=== PATIENT | female | born 2000 | race Caucasian/White ===

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

== ENCOUNTER 2019-10-14 18:37 | Emergency (ER) | payer OTHER ==
[~2019-10-14] VITALS: Ht 167.6 cm; Wt 104.3 kg
[~2019-10-14 18:37] MED LIST changes: +Flonase 0.05% N16 GM; +ORTHO TRI-CYCL1 EACH PO; +Sudogest60 MG PO
[2019-10-14 19:08] LABS: BASOPHILS ABSOLUTE AUTO 0.03 K/mm3 (0.00-0.23); BASOPHILS PERCENT AUTO 0 % (0-2); EOSINOPHILS ABSOLUTE AUTO 0.04 K/mm3 (0.00-0.68); EOSINOPHILS PERCENT AUTO 0 % (0-6); Hematocrit 47.1 % (33.0-51.0); IMMATURE GRAN ABSOLUTE AUTO 0.03 K/mm3 (0.00-0.10); IMMATURE GRAN PERCENT AUTO 0 % (0-1); LYMPHOCYTES ABSOLUTE AUTO 2.86 K/mm3 (0.84-5.20); LYMPHOCYTES PERCENT AUTO 24 % (21-46); MONOCYTES ABSOLUTE AUTO 1.07 K/mm3 (0.16-1.47); MONOCYTES PERCENT AUTO 9 % (4-13); Mean Corpuscular HGB 28.1 pg (26.0-34.0); Mean Corpuscular Volume 83 fL (80-100); Mean Platelet Volume 10.3 fL (9.1-12.4); NEUTROPHILS ABSOLUTE AUTO 7.97 K/mm3 (1.96-9.15); NEUTROPHILS PERCENT AUTO 66 % (41-73); Platelet Count 253 K/mm3 (150-400); RDW Coefficient Variation 11.6 % (11.7-14.2); RDW Standard Deviation 35.3 fL (35.1-46.3)
[2019-10-14 19:27] LABS: Alanine Aminotransfer (ALT/SGP 23 U/L (12-78); Albumin, Blood 3.4 g/dL (3.4-5.0); Albumin/Globulin Ratio 0.7 (0.8-1.8); Alk Phos 54 U/L (50-136); Anion Gap 7 mmol/L (6-16); Aspartate Aminotrans (AST/SGOT 12 U/L (12-37); Bilirubin, Total 0.8 mg/dL (0.1-1.0); Blood Urea Nitrogen 7 mg/dL (8-24); Bun/Creatinine Ratio 15.2 (12.0-20.0); CO2, Blood 25 mmol/L (21-32); Calcium, Blood 9.3 mg/dL (8.5-10.1); Chloride, Blood 101 mmol/L (98-108); Creatinine, Blood 0.46 mg/dL (0.40-1.00); Globulin, Blood 4.8 g/dL (2.2-4.0); Glomerular Filtration Rate >60 (60-); Glucose, Blood 236 mg/dL (70-99); Potassium, Blood 3.9 mmol/L (3.5-5.5); Sodium, Blood 133 mmol/L (136-145); Total Protein, Blood 8.2 g/dL (6.4-8.2)
[2019-10-14] MEDS ORDERED: HYDROCODONE-AC1 EAC8 PO (21:03)
[2019-10-14] MEDS ORDERED: ACET325 PO (21:03)
[2019-10-15] MEDS ORDERED: PSEUDOEPHEDRINE30 MG PO (00:12)
[2019-10-15] MEDS ORDERED: CEFD300 PO (00:12)
== END 2019-10-15 00:32 | disposition home or self-care (01) ==
LOC: ER 18:37
PROVIDERS: Physician Assistant
DX: J01.00 Acute maxillary sinusitis, unspecified (principal); J01.20 Acute ethmoidal sinusitis, unspecified; B96.89 Other specified bacterial agents as the cause of diseases classified elsewhere; Z88.2 Allergy status to sulfonamides; Z88.0 Allergy status to penicillin; Z98.890 Other specified postprocedural states
CPT/HCPCS: 36415; 70487; 80053; 85025; J0696; J2405; J7030; Q9967

== ENCOUNTER 2020-01-16 03:27 | Emergency (ER) | payer OTHER ==
[~2020-01-16] VITALS: Ht 167.6 cm; Wt 103.0 kg
[~2020-01-16 03:27] MED LIST changes: +ACET325 PO; +CEFD300 PO; +HYDROCODONE-AC1 EAC8 PO; +PSEUDOEPHEDRINE30 MG PO
[2020-01-16] MEDS ORDERED: [UNRECOGNIZED DRUG - OTHER] (04:27)
[2020-01-16] MEDS ORDERED: ACYC400 PO (04:31)
[2020-01-16 05:14] LABS: Source, Urine Clean Catch
[2020-01-16 05:21] LABS: Appearance, Urine Turbid (Clear); Bilirubin, Urine Neg (Neg); Blood, Urine 4+ (Neg); Color, Urine Yellow (P-Yellow); Glucose Qualitative, Urine 4+ (Neg); Ketones, Urine 4+ (Neg); Leukocyte Esterase, Urine 3+ (Neg); Nitrite, Urine Neg (Neg); Protein, Urine 3+ (Neg); Specific Gravity, Urine 1.025 (1.003-1.022); Urobilinogen, Urine NORM (Normal)
[2020-01-16 05:31] LABS: Amorphous Heavy (0-Heavy); Bacteria Many /hpf; Squamous Epithelial Cells Mod /hpf (Few)
[2020-01-16 05:41] LABS: Candida species (DNA Probe) Negative (NEGATIVE); G. vaginalis (DNA Probe) Positive (NEGATIVE); T. vaginalis (DNA Probe) Negative (NEGATIVE)
[2020-01-16] MEDS ORDERED: Flagyl500 MG PO (05:51)
[2020-01-17] MEDS ORDERED: LIDO5TO TOP (21:33)
[2020-01-18 03:08] LABS: CHLAMYDIA TRACHOMATIS, NAA Negative (Negative)
== END 2020-01-16 06:09 | disposition home or self-care (01) ==
LOC: ER 03:27
PROVIDERS: Emergency Medicine
DX: B00.1 Herpesviral vesicular dermatitis (principal); N76.0 Acute vaginitis; B96.89 Other specified bacterial agents as the cause of diseases classified elsewhere; Z88.2 Allergy status to sulfonamides; Z88.0 Allergy status to penicillin
CPT/HCPCS: 81001; 87086; 87480; 87491; 87510; 87591; 87660; 96372; 99283-25; J0696

== ENCOUNTER 2020-01-17 18:20 | Emergency (ER) | payer OTHER ==
[~2020-01-17] VITALS: Ht 167.6 cm; Wt 100.7 kg
[~2020-01-17 18:20] MED LIST changes: +ACYC400 PO; +Flagyl500 MG PO; +[UNRECOGNIZED DRUG - OTHER]
[2020-01-17 19:56] LABS: BASOPHILS ABSOLUTE AUTO 0.02 K/mm3 (0.00-0.23); BASOPHILS PERCENT AUTO 0 % (0-2); EOSINOPHILS PERCENT AUTO 0 % (0-6); Hematocrit 44.2 % (33.0-51.0); Hemoglobin 14.9 g/dL (11.5-16.0); IMMATURE GRAN ABSOLUTE AUTO 0.01 K/mm3 (0.00-0.10); IMMATURE GRAN PERCENT AUTO 0 % (0-1); LYMPHOCYTES ABSOLUTE AUTO 1.74 K/mm3 (0.84-5.20); LYMPHOCYTES PERCENT AUTO 26 % (21-46); MONOCYTES ABSOLUTE AUTO 0.61 K/mm3 (0.16-1.47); MONOCYTES PERCENT AUTO 9 % (4-13); Mean Corpuscular HGB 27.4 pg (26.0-34.0); Mean Corpuscular HGB Conc 33.7 g/dL (31.5-36.5); Mean Corpuscular Volume 81 fL (80-100); Mean Platelet Volume 10.1 fL (9.1-12.4); NEUTROPHILS ABSOLUTE AUTO 4.39 K/mm3 (1.96-9.15); NEUTROPHILS PERCENT AUTO 65 % (41-73); Platelet Count 197 K/mm3 (150-400); RDW Coefficient Variation 12.3 % (11.7-14.2); RDW Standard Deviation 36.6 fL (35.1-46.3); Red Blood Cell Count 5.43 M/mm3 (3.80-5.20); White Blood Cell Count 6.77 K/mm3 (4.00-11.30)
[2020-01-17 20:21] LABS: Alanine Aminotransfer (ALT/SGP 41 U/L (12-78); Albumin, Blood 3.2 g/dL (3.4-5.0); Albumin/Globulin Ratio 0.7 (0.8-1.8); Alk Phos 57 U/L (50-136); Anion Gap 11 mmol/L (6-16); Aspartate Aminotrans (AST/SGOT 39 U/L (12-37); Bilirubin, Total 0.3 mg/dL (0.1-1.0); Blood Urea Nitrogen 9 mg/dL (8-24); Bun/Creatinine Ratio 19.7 (12.0-20.0); CO2, Blood 21 mmol/L (21-32); Calcium, Blood 9.3 mg/dL (8.5-10.1); Chloride, Blood 104 mmol/L (98-108); Creatinine, Blood 0.46 mg/dL (0.40-1.00); Globulin, Blood 4.7 g/dL (2.2-4.0); Glomerular Filtration Rate >60 (60-); Glucose, Blood 243 mg/dL (70-99); Potassium, Blood 3.7 mmol/L (3.5-5.5); Sodium, Blood 136 mmol/L (136-145); Total Protein, Blood 7.9 g/dL (6.4-8.2)
[2020-01-17] MEDS ORDERED: LIDO5TO TOP (21:33)
== END 2020-01-17 23:35 | disposition home or self-care (01) ==
LOC: ER 18:20
PROVIDERS: Emergency Medicine
DX: E86.0 Dehydration (principal); N89.8 Other specified noninflammatory disorders of vagina; Z88.2 Allergy status to sulfonamides; Z88.0 Allergy status to penicillin; Z79.899 Other long term (current) drug therapy
CPT/HCPCS: 80053; 84703; 85025; 99283; J7030

== ENCOUNTER → 2020-06-01 | Outpatient (CLI) | payer OTHER ==
[~2020-06-01] MED LIST changes: +LIDO5TO TOP
== END | disposition home or self-care (01) ==
LOC: LAB SHORT 13:28
DX: Z32.01 Encounter for pregnancy test, result positive (principal)
CPT/HCPCS: 84702

== ENCOUNTER 2020-12-16 15:18 | Inpatient (IN) | payer OTHER ==
[~2020-12-16] VITALS: Ht 167.6 cm; Wt 120.0 kg
[2020-12-16 16:40] LABS: BASOPHILS ABSOLUTE AUTO 0.02 K/mm3 (0.00-0.23); BASOPHILS PERCENT AUTO 0 % (0-2); EOSINOPHILS ABSOLUTE AUTO 0.01 K/mm3 (0.00-0.68); EOSINOPHILS PERCENT AUTO 0 % (0-6); Hematocrit 37.4 % (33.0-51.0); Hemoglobin 13.1 g/dL (11.5-16.0); IMMATURE GRAN ABSOLUTE AUTO 0.04 K/mm3 (0.00-0.10); IMMATURE GRAN PERCENT AUTO 0 % (0-1); LYMPHOCYTES ABSOLUTE AUTO 1.75 K/mm3 (0.84-5.20); LYMPHOCYTES PERCENT AUTO 19 % (21-46); MONOCYTES ABSOLUTE AUTO 0.65 K/mm3 (0.16-1.47); MONOCYTES PERCENT AUTO 7 % (4-13); Mean Corpuscular HGB 28.8 pg (26.0-34.0); Mean Corpuscular Volume 82 fL (80-100); Mean Platelet Volume 10.9 fL (9.1-12.4); NEUTROPHILS ABSOLUTE AUTO 6.57 K/mm3 (1.96-9.15); NEUTROPHILS PERCENT AUTO 73 % (41-73); Platelet Count 202 K/mm3 (150-400); RDW Coefficient Variation 13.2 % (11.7-14.2); RDW Standard Deviation 39.5 fL (35.1-46.3); Red Blood Cell Count 4.55 M/mm3 (3.80-5.20); White Blood Cell Count 9.04 K/mm3 (4.00-11.30)
[2020-12-16 17:14] LABS: Alanine Aminotransfer (ALT/SGP 19 U/L (12-78); Albumin, Blood 2.3 g/dL (3.4-5.0); Albumin/Globulin Ratio 0.6 (0.8-1.8); Alk Phos 79 U/L (50-136); Anion Gap 7 mmol/L (6-16); Aspartate Aminotrans (AST/SGOT 14 U/L (12-37); Bilirubin, Total 0.2 mg/dL (0.1-1.0); Blood Urea Nitrogen 10 mg/dL (8-24); Bun/Creatinine Ratio 17.7 (12.0-20.0); CO2, Blood 23 mmol/L (21-32); Calcium, Blood 9.2 mg/dL (8.5-10.1); Chloride, Blood 108 mmol/L (98-108); Creatinine, Blood 0.57 mg/dL (0.40-1.00); Globulin, Blood 3.7 g/dL (2.2-4.0); Glomerular Filtration Rate >60 (60-); Glucose, Blood 108 mg/dL (70-99); Potassium, Blood 3.9 mmol/L (3.5-5.5); Sodium, Blood 138 mmol/L (136-145)
[2020-12-16] MEDS ORDERED: METF500 PO (18:31)
[2020-12-16] MEDS ORDERED: PRENATAL TABLE1 EAC2 PO (18:33)
[2020-12-16 18:40] LABS: Protein, Urine Random 428.1 mg/dL (0.0-11.9); Protein/Creat Ratio, Ur Random 1.6
[2020-12-16 19:15] LABS: SARS-Cov-2 (COVID-19) PCR, MMC NEGATIVE (NEGATIVE)
--- NOTE | 2020-12-17 14:13 | NUR ---
PP HEMORRHAGE- AFTER PLACENTA WAS DELIVERED DR GRANADOS EBL TO BE 500. NEW PADS CHANGED AND STARTED WEIGHING ALL PADS. CYTOTEC 800 RECTALLY AT 1203, BLEEDING CONTINUED WITH LARGE CLOTS SO HEAMBATE GIVEN AT 1214 PER DARWIN. DARWIN REMAINED AT BED TO ASSESS BLEEDING. 2ND BAG OF PIT HUNG AT 999/HR PER DARWIN. BP AND BIOX ON. PT VERY PAINFUL WITH FUNDAL CHECKS SO FENTANYL GIVEN AT 1235 AND A LARGE CLOT EXPELLED WITH MASSAGE. FUNDUS MUCH MORE FIRM NOW. 2ND IV STARTED BY MELANIE MONROE. QBL AT THIS POINT WAS 523. TOTAL EBL AND QBL COMBINED NOW AT 1023. DARWIN REMAINED AT BEDSIDE UNTIL 1345 ONCE LOCHIA WNL.
--- NOTE | 2020-12-17 17:45 | NUR ---
t from [facility] MABEL
--- NOTE | 2020-12-17 18:00 | NUR ---
PT UP TO BATHROOM, HAVING DIARRHEA, SHOWERED AGAIN, INSTRUCTION GIVEN ON RUTH-BOTTLE.
--- NOTE | 2020-12-17 18:05 | NUR ---
DR GRANADOS UPDATED ON NB BEING TRANSPORTED TO [facility], STAT LABS ORDERED
--- NOTE | 2020-12-17 18:20 | NUR ---
DR CERON AT BEDSIDE, DISCUSSED PLAN OF CARE AND HE FEELS NB NEEDS TO BE TRANSPORTED TO [facility], QUESTIONS ANSWERED, MOM AND GRANDMA BOTH AGREE, MABEL MARIE DISCUSSED POSSIBLE EARLY DISCHARGE THIS EVENING, BOTH PT AND HER MOM AGREE THE WOULD LIKE TO WAIT UNTIL AM. DR GRANADOS NOTIFIED OF PT WISHES
[2020-12-17 18:28] LABS: Hemoglobin 12.3 g/dL (11.5-16.0)
--- NOTE | 2020-12-17 19:07 | NUR ---
REPT TO Tate HODGES RN
--- NOTE | 2020-12-17 21:45 | NUR ---
RN BROUGHT BREAST PUMP TO PT ROOM AND INSTRUCTED HER ON USE. PT VERBALIZES UNDERSTANDING
[2020-12-18 07:27] LABS: BASOPHILS ABSOLUTE AUTO 0.05 K/mm3 (0.00-0.23); BASOPHILS PERCENT AUTO 1 % (0-2); EOSINOPHILS ABSOLUTE AUTO 0.02 K/mm3 (0.00-0.68); EOSINOPHILS PERCENT AUTO 0 % (0-6); Hematocrit 25.3 % (33.0-51.0); Hemoglobin 8.7 g/dL (11.5-16.0); IMMATURE GRAN ABSOLUTE AUTO 0.03 K/mm3 (0.00-0.10); IMMATURE GRAN PERCENT AUTO 0 % (0-1); LYMPHOCYTES ABSOLUTE AUTO 2.37 K/mm3 (0.84-5.20); LYMPHOCYTES PERCENT AUTO 25 % (21-46); MONOCYTES ABSOLUTE AUTO 0.83 K/mm3 (0.16-1.47); MONOCYTES PERCENT AUTO 9 % (4-13); Mean Corpuscular HGB 28.7 pg (26.0-34.0); Mean Corpuscular HGB Conc 34.4 g/dL (31.5-36.5); Mean Corpuscular Volume 84 fL (80-100); Mean Platelet Volume 10.6 fL (9.1-12.4); NEUTROPHILS ABSOLUTE AUTO 6.25 K/mm3 (1.96-9.15); NEUTROPHILS PERCENT AUTO 66 % (41-73); Platelet Count 179 K/mm3 (150-400); RDW Coefficient Variation 13.5 % (11.7-14.2); RDW Standard Deviation 41.2 fL (35.1-46.3); Red Blood Cell Count 3.03 M/mm3 (3.80-5.20); White Blood Cell Count 9.55 K/mm3 (4.00-11.30)
--- NOTE | 2020-12-18 09:03 | NUR ---
PRESCRIPTION FOR 800 MG IBUPROFEN PO Q8 #60 0 REFILLS CALLED TO [facility] ON [address] FOR DR[address] GRANADOS PATIENT ALSO TO TAKE 1-2 OTC IRON SUPPLEMENT FOR 6 WEEKS.
[2020-12-18] MEDS ORDERED: FERSU300 PO (10:04)
[2020-12-18] MEDS ORDERED: IBUP800 PO (10:05)
--- NOTE | 2020-12-18 10:20 | NUR ---
PT DECIDED SHE WOULD PREFER TO TAKE OTC IBUPROFEN. PRESCRIPTION FOR PO IBUPROFEN 800MG NOT CALLED IN.
--- NOTE | 2020-12-18 11:04 | NUR ---
PT DISCHARGED HOME. ALL D/C TEACHING COMPLETED AND QUESTIONS AND CONCERNS ANSWERED. IVS REMOVED. PT DECLINES FLU VACCINE AND TDAP.
--- NOTE | 2020-12-19 13:08 | NUR ---
LATE ENTRY INITIATE PROTOCOL: L&D ADM DR GRANADOS/WILLIAMS FOREMAN RN 12/16/20 @ 1744
--- NOTE | 2020-12-23 09:17 | NUR ---
PPFU (T/C) PT IS HOME FROM [facility]IS DISCHARGD FROM NICU YESTERDAY. PT STATES SHE HAS BEEN BREAST AND BOTTLE FEEDING NB. STATES SHE HASN'T PUMPED MUCH SHE SHOULD BUT SINCE BEING HOME IS PUMPING EVERY TIME BABY FEEDS, EVERY 2-3 HOURS. PT STATES HER VAGINAL BLEEDING IS LIGHTENING UP AND TURNING MORE PINK IN COLOR. PT DENIES HEADACHE, BLURRED VISION, OR DIZZINESS. PT STATES SHE HAS SOME NUMBNESS AND TINGLING IN HER FEET DUE TO INCREASED SWELLING. TALKED W/ PT ABOUT INCREASING WATER CONSUMPTION AND ELEVATION OF FEET WHEN POSSIBLE. TALKED W/ PT ABOUT WHEN TO CONTACT PROVIDER. PT STATES SHE HAS BEEN HAVING SOME LOWER ABD CRAMPING, ENCOURAGED PT TO TAKE TYLENOL AND/OR IBUPROFEN NEEDED. PT DENIES ANY FURTHER QUESTIONS OR CONCERNS.
== END 2020-12-18 11:19 | disposition home or self-care (01) | DRG 805 ==
LOC: BC 15:18 → OBS 15:18 → BC 17:45
PROVIDERS: ADMIT Obstetrics & Gynecology
PROC: 3E02340 Introduction of Influenza Vaccine into Muscle, Percutaneous Approach (ICD-10-PCS; 2020-12-16)
PROC: 10E0XZZ Delivery of Products of Conception, External Approach (ICD-10-PCS; principal; 2020-12-17)
PROC: 3E033VJ Introduction of Other Hormone into Peripheral Vein, Percutaneous Approach (ICD-10-PCS; 2020-12-17)
DX: O42.013 Preterm premature rupture of membranes, onset of labor within 24 hours of rupture, third trimester (principal); O24.12 Pre-existing type 2 diabetes mellitus, in childbirth; Z37.0 Single live birth; O72.1 Other immediate postpartum hemorrhage; O14.14 Severe pre-eclampsia complicating childbirth; Z3A.36 36 weeks gestation of pregnancy; Z20.822 Contact with and (suspected) exposure to COVID-19; Z88.2 Allergy status to sulfonamides; Z88.0 Allergy status to penicillin; Z88.1 Allergy status to other antibiotic agents; Z79.899 Other long term (current) drug therapy; O69.81X0 Labor and delivery complicated by cord around neck, without compression, not applicable or unspecified; Z23 Encounter for immunization; Z91.040 Latex allergy status; E11.9 Type 2 diabetes mellitus without complications
CPT/HCPCS: 36415; 59025; 80053; 81003; 82570; 82947; 84156; 85014; 85018; 85025; 86850; 86900; 86901; 87210; A9270; J1720; J1885; J2001; J2405; J2590; J3010; J7120; U0004

== ENCOUNTER 2024-01-25 18:48 | Inpatient (IN) | payer OTHER ==
[~2024-01-25] VITALS: Ht 167.6 cm; Wt 119.0 kg
[2024-01-25] VITALS (23 sets, daily range): BP systolic 101–171; BP diastolic 38–103
[~2024-01-25 18:48] MED LIST changes: +Carboprost Tromethamine 250 MCG/ML 1ML Amp IM ONE; +FERSU300 PO; +IBUP800 PO; +METF500 PO; +PRENATAL TABLE1 EAC2 PO
[2024-01-25] MEDS ORDERED: NIFEdipine 10 MG Cap ONE (19:35)
[2024-01-25] MEDS ORDERED: Lactated Ringer's 1,000 ML IV SCH ×3 (19:45→23:45)
[2024-01-25] MEDS ORDERED: Azithromycin 500 MG in NS 250 ML IV SCH (19:45)
[2024-01-25] MEDS ORDERED: CeFAZolin Sodium 2,000 MG in NS 100 ML IV SCH (19:45)
[2024-01-25] MEDS ORDERED: Calcium Gluconate 0.465 mEq/ml 10 ml Vial IV PRN (19:50)
[2024-01-25] MEDS ORDERED: Magnesium Sulf 2 GM/Water 50ML 50 ML IV SCH (19:50)
[2024-01-25] MEDS ORDERED: Labetalol HCL 5 MG/ML 4ML Injection (Single Dose) IV ONE (19:50)
[2024-01-25] MEDS ORDERED: Magnesium Sulfate 500 ML IV SCH (19:50)
[2024-01-25] MEDS ORDERED: NIFEdipine 10 MG Cap PO ONE (19:50)
[2024-01-25] MEDS ORDERED: Magnesium Sul 4 GM/Water100 ML 100 ML IV ONE (19:50)
[2024-01-25] MEDS ORDERED: Labetalol HCL 5 MG/ML 4ML Injection (Single Dose) IV PRN ×2 (19:50)
[2024-01-25] MEDS ORDERED: VALA500 PO (19:53)
[2024-01-25] MEDS ORDERED: NOVOLIN R100 UNIT/2 SC (19:53)
[2024-01-25 21:15] LABS: BASOPHILS ABSOLUTE AUTO 0.04 K/mm3 (0.00-0.23); BASOPHILS PERCENT AUTO 0 % (0-2); EOSINOPHILS ABSOLUTE AUTO 0.01 K/mm3 (0.00-0.68); EOSINOPHILS PERCENT AUTO 0 % (0-6); Hematocrit 37.3 % (33.0-51.0); Hemoglobin 12.7 g/dL (11.5-16.0); IMMATURE GRAN ABSOLUTE AUTO 0.04 K/mm3 (0.00-0.10); IMMATURE GRAN PERCENT AUTO 0 % (0-1); LYMPHOCYTES ABSOLUTE AUTO 2.36 K/mm3 (0.84-5.20); LYMPHOCYTES PERCENT AUTO 18 % (21-46); MONOCYTES ABSOLUTE AUTO 0.73 K/mm3 (0.16-1.47); MONOCYTES PERCENT AUTO 6 % (4-13); Mean Corpuscular HGB 26.6 pg (26.0-34.0); Mean Corpuscular Volume 78 fL (80-100); Mean Platelet Volume 9.9 fL (9.1-12.4); NEUTROPHILS PERCENT AUTO 76 % (41-73); Platelet Count 203 K/mm3 (150-400); RDW Standard Deviation 39.2 fL (35.1-46.3); Red Blood Cell Count 4.77 M/mm3 (3.80-5.20); White Blood Cell Count 13.18 K/mm3 (4.00-11.30)
[2024-01-25] MEDS ORDERED: FentaNYL Citrate 50 MCG/ML 2 ML Injection IV PRN (21:15)
[2024-01-25] MEDS ORDERED: Metoclopramide HCl 5MG / ML 2ML Vial ONE (21:18)
[2024-01-25] MEDS ORDERED: Ondansetron HCl 2 MG / ML 2ML Vial IV PRN ×2 (21:20→23:45)
[2024-01-25] MEDS ORDERED: HYDROmorphone HCl/Pf 1MG SYR IV PRN (21:20)
[2024-01-25] MEDS ORDERED: FentaNYL Citrate 50 MCG/ML 2 ML Injection ONE (21:22)
[2024-01-25] MEDS ORDERED: Oxytocin 10 Unit / ML Vial ONE (21:24)
[2024-01-25] MEDS ORDERED: Metoclopramide HCl 5MG / ML 2ML Vial IV ONE (21:25)
[2024-01-25] MEDS ORDERED: Ketorolac Tromethamine 30mg Vial ONE (21:25)
[2024-01-25 21:33] LABS: International Normalized Ratio 0.87; Prothrombin Time Results 9.4 Sec (9.7-11.5)
[2024-01-25 21:37] LABS: Protein, Urine Random 92.4 mg/dL (0.0-11.9); Protein/Creat Ratio, Ur Random 0.7
[2024-01-25 21:52] LABS: Albumin, Blood 2.5 g/dL (3.4-5.0); Albumin/Globulin Ratio 0.6 (0.8-1.8); Bilirubin, Total 0.3 mg/dL (0.1-1.0); Bun/Creatinine Ratio 18.8 (12.0-20.0); Calcium, Blood 9.1 mg/dL (8.5-10.1); Creatinine, Blood 0.53 mg/dL (0.40-1.00); Globulin, Blood 4.5 g/dL (2.2-4.0); Potassium, Blood 3.9 mmol/L (3.5-5.5)
[2024-01-25] MEDS ORDERED: Bupivacaine 0.75%/Dext 8.25% 2 ML Amp IT ONE (21:52)
[2024-01-25] MEDS ORDERED: Phenylephrine HCl 100 MCG/ML-NS 10MLSYR (1MG/10ML) ONE ×2 (22:07→22:32)
[2024-01-25] MEDS ORDERED: Misoprostol 200 MCG Tab PR PRN (23:40)
[2024-01-25] MEDS ORDERED: Promethazine HCl 25 MG Tab PO PRN (23:40)
[2024-01-25] MEDS ORDERED: Magnesium Hydroxide Conc 10 ML UDC PO PRN (23:40)
[2024-01-25] MEDS ORDERED: OxyCODONE 5 mg/Acetamin 325 mg TABLET PO PRN (23:45)
[2024-01-25] MEDS ORDERED: Simethicone 80 MG Chew PO PRN (23:45)
[2024-01-25] MEDS ORDERED: Lanolin Cream TOP PRN (23:45)
[2024-01-25] MEDS ORDERED: OXYTOCIN/RINGER'S LACTATE 500 ML IV SCH (23:45)
[2024-01-25] MEDS ORDERED: Morphine Sulfate 4 MG/1 ML Injection IV PRN (23:45)
[2024-01-25] MEDS ORDERED: Misoprostol 100 MCG Tab ONE (23:49)
[2024-01-25] MEDS ORDERED: Acetaminophen 500 MG Tab PO PRN (23:50)
[2024-01-25] MEDS ORDERED: Promethazine HCl 25 MG Supp PR PRN (23:50)
[2024-01-25] MEDS ORDERED: Promethazine HCl 12.5 MG Supp PR PRN (23:50)
[2024-01-25] MEDS ORDERED: Misoprostol 100 MCG Tab PO ONE (23:55)
[2024-01-26] VITALS (41 sets, daily range): BP systolic 116–151; BP diastolic 56–89
[2024-01-26] MEDS ORDERED: Ketorolac Tromethamine 30mg Vial IV SCH
[2024-01-26] MEDS ORDERED: Ibuprofen 400 MG Tab PO SCH
[2024-01-26] MEDS ORDERED: Tranexamic Acid 100 ML IV PRN (00:20)
[2024-01-26] MEDS ORDERED: Misoprostol 200 MCG Tab BC PRN (01:45)
[2024-01-26] MEDS ORDERED: OXYTOCIN/RINGER'S LACTATE 500 ML IV PRN (01:45)
[2024-01-26] MEDS ORDERED: Methylergonovine Maleate 0.2MG / ML 1ML Amp IM PRN (01:45)
[2024-01-26] MEDS ORDERED: Carboprost Tromethamine 250 MCG/ML 1ML Amp IM PRN (01:45)
[2024-01-26] MEDS ORDERED: Misoprostol 200 MCG Tab PR PRN (01:45)
[2024-01-26] MEDS ORDERED: Tranexamic Acid 100 ML IV SCH (01:45)
[2024-01-26] MEDS ORDERED: Oxytocin 10 Unit / ML Vial IM PRN (01:45)
--- NOTE | 2024-01-26 01:58 | NUR ---
MAGNESIUM SULFATE RESTARTED AT 0059 AFTER C/S DELIVERY AND OUT OF PACU PER [facility] DAN[facility] ORDER.
[2024-01-26] MEDS ORDERED: Acetaminophen 500 MG Tab PO PRN (02:40)
[2024-01-26] MEDS ORDERED: Ibuprofen 400 MG Tab PO PRN (02:40)
[2024-01-26] MEDS ORDERED: Ketorolac Tromethamine 30mg Vial IV PRN (02:40)
[2024-01-26] MEDS ORDERED: CeFAZolin Sodium 2,000 MG in NS 100 ML IV SCH (04:30)
[2024-01-26] MEDS ORDERED: Misoprostol 100 MCG Tab PO PRN (06:00)
[2024-01-26 06:50] LABS: BASOPHILS ABSOLUTE AUTO 0.03 K/mm3 (0.00-0.23); BASOPHILS PERCENT AUTO 0 % (0-2); EOSINOPHILS PERCENT AUTO 0 % (0-6); Hematocrit 27.1 % (33.0-51.0); Hemoglobin 9.2 g/dL (11.5-16.0); IMMATURE GRAN ABSOLUTE AUTO 0.03 K/mm3 (0.00-0.10); IMMATURE GRAN PERCENT AUTO 0 % (0-1); LYMPHOCYTES ABSOLUTE AUTO 1.58 K/mm3 (0.84-5.20); LYMPHOCYTES PERCENT AUTO 14 % (21-46); MONOCYTES ABSOLUTE AUTO 0.67 K/mm3 (0.16-1.47); MONOCYTES PERCENT AUTO 6 % (4-13); Mean Corpuscular HGB 26.7 pg (26.0-34.0); Mean Corpuscular HGB Conc 33.9 g/dL (31.5-36.5); Mean Corpuscular Volume 79 fL (80-100); Mean Platelet Volume 9.6 fL (9.1-12.4); NEUTROPHILS ABSOLUTE AUTO 8.94 K/mm3 (1.96-9.15); NEUTROPHILS PERCENT AUTO 79 % (41-73); Platelet Count 144 K/mm3 (150-400); RDW Coefficient Variation 14.2 % (11.7-14.2); RDW Standard Deviation 39.9 fL (35.1-46.3); Red Blood Cell Count 3.44 M/mm3 (3.80-5.20); White Blood Cell Count 11.25 K/mm3 (4.00-11.30)
[2024-01-26 07:54] LABS: International Normalized Ratio 0.86; Prothrombin Time Results 9.3 Sec (9.7-11.5)
[2024-01-26] MEDS ORDERED: MetFORMIN HCl 500 mg PO SCH (08:00)
[2024-01-26] MEDS ORDERED: Docusate Sodium 100 MG Cap PO SCH (09:00)
[2024-01-26] MEDS ORDERED: ValACYClovir HCL 500 MG Tab PO SCH (09:00)
[2024-01-26] MEDS ORDERED: Prenatal Vit/FE Fumarate/FA 1 Tab PO SCH (09:00)
[2024-01-26] MEDS ORDERED: Albuterol 2.5 MG/3 ML VIAL INH PRN (09:35)
[2024-01-26] MEDS ORDERED: Misoprostol 100 MCG Tab PO SCH (12:00)
[2024-01-26] MEDS ORDERED: Sod Ferric Gluc Complx/Sucrose 125 MG in NS 100 ML IV ONE (14:35)
[2024-01-26] MEDS ORDERED: Insulin NPH 10 Unit/0.1ML (Single Dose) SC SCH (21:00)
[2024-01-26] MEDS ORDERED: Insulin NPH 100 Unit / ML 10ML Vial SC SCH (22:14)
[2024-01-27] VITALS (16 sets, daily range): BP systolic 121–173; BP diastolic 63–91
[2024-01-27 06:04] LABS: Hematocrit 24.2 % (33.0-51.0); Mean Corpuscular HGB 26.4 pg (26.0-34.0); Mean Corpuscular HGB Conc 33.1 g/dL (31.5-36.5); Mean Corpuscular Volume 80 fL (80-100); Mean Platelet Volume 9.3 fL (9.1-12.4); Platelet Count 144 K/mm3 (150-400); RDW Coefficient Variation 14.6 % (11.7-14.2); RDW Standard Deviation 41.9 fL (35.1-46.3); Red Blood Cell Count 3.03 M/mm3 (3.80-5.20); White Blood Cell Count 8.26 K/mm3 (4.00-11.30)
[2024-01-27 06:41] LABS: Glucose, Blood 92 mg/dL (70-99)
[2024-01-27] MEDS ORDERED: Dextromethorphan Polistirix 30 MG/5 ML 5ML Oral Syringe PO PRN (10:45)
[2024-01-27] MEDS ORDERED: FLU VACC TS2024-25(6MOS UP)/PF 45 MCG/0.5 ML SYRINGE IM SCH (10:50)
[2024-01-27] MEDS ORDERED: Sod Ferric Gluc Complx/Sucrose 125 MG in NS 100 ML IV ONE (10:55)
[2024-01-27] MEDS ORDERED: GuaiFENesin 600 MG TabCR PO SCH ×2 (11:55→21:00)
--- NOTE | 2024-01-27 14:30 | NUR ---
XANDER NAJERA UPDATED ON PT'S BP'S. OKAY TO STILL PROCEED WITH DISCHARGE HOME, PT EDUCATED TO USE HOME BLOOD PRESSURE CUFF AND CONTACT CNM IF CONTINUED TO BE ELEVATED
== END 2024-01-27 14:50 | disposition home or self-care (01) | DRG 786 ==
LOC: BC 18:48 → OBS 18:48 → BC 19:50 → OBS 19:50 → BC 01-26 05:28
PROVIDERS: Advanced Practice Midwife; ADMIT Obstetrics & Gynecology
PROC: 10D00Z1 Extraction of Products of Conception, Low, Open Approach (ICD-10-PCS; principal; 2024-01-25 20:00)
DX: O36.63X0 Maternal care for excessive fetal growth, third trimester, not applicable or unspecified (principal); O24.12 Pre-existing type 2 diabetes mellitus, in childbirth; O60.14X0 Preterm labor third trimester with preterm delivery third trimester, not applicable or unspecified; O10.92 Unspecified pre-existing hypertension complicating childbirth; O72.1 Other immediate postpartum hemorrhage; Z37.0 Single live birth; Z79.84 Long term (current) use of oral hypoglycemic drugs; Z79.4 Long term (current) use of insulin; Z88.0 Allergy status to penicillin; Z88.2 Allergy status to sulfonamides; Z91.040 Latex allergy status; O11.4 Pre-existing hypertension with pre-eclampsia, complicating childbirth; O90.81 Anemia of the puerperium; Z3A.36 36 weeks gestation of pregnancy; E11.65 Type 2 diabetes mellitus with hyperglycemia; O40.3XX0 Polyhydramnios, third trimester, not applicable or unspecified
CPT/HCPCS: 36415; 80053; 82570; 82947; 83615; 84156; 85025; 85027; 85384; 85610; 85730; 86850; 86900; 86901; 86923; 87081; 87150; 94760; A9270; J0456; J0690; J1720; J1815; J1885; J2270; J2371; J2590; J2765; J2916; J3010; J3475; J7050; J7120

== ENCOUNTER 2024-06-10 12:44 | Emergency (ER) | payer OTHER ==
[~2024-06-10] VITALS: Ht 167.6 cm; Wt 108.0 kg
[~2024-06-10 12:44] MED LIST changes: -Carboprost Tromethamine 250 MCG/ML 1ML Amp IM ONE; +NOVOLIN R100 UNIT/2 SC; +VALA500 PO
[2024-06-10 13:01] VITALS: BP 168/117
[2024-06-10 13:29] LABS: BASOPHILS ABSOLUTE AUTO 0.04 K/mm3 (0.00-0.23); BASOPHILS PERCENT AUTO 1 % (0-2); EOSINOPHILS ABSOLUTE AUTO 0.06 K/mm3 (0.00-0.68); EOSINOPHILS PERCENT AUTO 1 % (0-6); Hematocrit 41.5 % (33.0-51.0); Hemoglobin 14.5 g/dL (11.5-16.0); IMMATURE GRAN ABSOLUTE AUTO 0.02 K/mm3 (0.00-0.10); IMMATURE GRAN PERCENT AUTO 0 % (0-1); LYMPHOCYTES ABSOLUTE AUTO 2.29 K/mm3 (0.84-5.20); LYMPHOCYTES PERCENT AUTO 30 % (21-46); MONOCYTES ABSOLUTE AUTO 0.43 K/mm3 (0.16-1.47); MONOCYTES PERCENT AUTO 6 % (4-13); Mean Corpuscular HGB 27.4 pg (26.0-34.0); Mean Corpuscular HGB Conc 34.9 g/dL (31.5-36.5); Mean Corpuscular Volume 78 fL (80-100); Mean Platelet Volume 9.9 fL (9.1-12.4); NEUTROPHILS PERCENT AUTO 62 % (41-73); Platelet Count 220 K/mm3 (150-400); RDW Coefficient Variation 13.2 % (11.7-14.2); RDW Standard Deviation 37.1 fL (35.1-46.3); Red Blood Cell Count 5.29 M/mm3 (3.80-5.20); White Blood Cell Count 7.54 K/mm3 (4.00-11.30)
[2024-06-10 13:53] LABS: Albumin, Blood 3.2 g/dL (3.4-5.0); Albumin/Globulin Ratio 0.8 (0.8-1.8); Bilirubin, Total 0.5 mg/dL (0.1-1.0); Bun/Creatinine Ratio 29.7 (12.0-20.0); Calcium, Blood 8.8 mg/dL (8.5-10.1); Creatinine, Blood 0.44 mg/dL (0.40-1.00); Potassium, Blood 3.6 mmol/L (3.5-5.5); Total Protein, Blood 7.2 g/dL (6.4-8.2)
== END 2024-06-10 15:43 | disposition home or self-care (01) ==
LOC: ER 12:44
PROVIDERS: Physician Assistant
DX: N93.9 Abnormal uterine and vaginal bleeding, unspecified (principal); E11.65 Type 2 diabetes mellitus with hyperglycemia; Z88.2 Allergy status to sulfonamides; Z88.0 Allergy status to penicillin; Z79.84 Long term (current) use of oral hypoglycemic drugs; Z79.4 Long term (current) use of insulin
CPT/HCPCS: 76830; 76856; 80053; 84703; 85025; 93005; 93010; 99284-25

== ENCOUNTER → 2024-08-07 | Outpatient (CLI) | payer OTHER | LOC: LAB SHORT 18:05 → LAB 18:05 | DX: Z01.89 Encounter for other specified special examinations (principal); Z83.49 Family history of other endocrine, nutritional and metabolic diseases | CPT/HCPCS: 84443 ==